=== PATIENT | female | born 1960 | race Caucasian/White ===

== ENCOUNTER 2020-09-15 11:07 | Emergency (ER) | payer BC ==
[~2020-09-15] VITALS: Ht 157.5 cm; Wt 70.3 kg
[2020-09-15 11:07] VITALS: BP 135/74
--- NOTE | 2020-09-15 11:14 | PHYS DOC ---
Past History Past Medical History: Diabetes Adult General Chief Complaint Chief Complaint: ANKLE PROBLEM HPI HPI Patient is a 60yo female presenting via ems for right ankle pain. Onset was just prior to arrival. Patient was walking her dog when another random dog tried fighting her dog. In attempt to pull her dog away and flee, patient reports stepping backwards onto her right foot making and "awkward twisting motion and it just buckled". States she heard a pop and ever since, has had bilateral malleolar pain and difficulty bearing weight. Patient called EMS who splinted foot and gave 100mcg fentanyl. States pain which was initially 10/10 severity is now a 7/10 severity. On ER arriva, she is complaing of right medial malleolus and right posterior fibular head pain. Patient reoprts only significant PMHx well-controlled type 1 DM with insulin pump Review of Systems Review of Systems Fourteen body systems of review of systems have been reviewed. See HPI for pertinent positives and negative responses, other leal all other systems are negative, non-pertinent or non-contributory Physical Exam Physical Exam Constitutional: Well developed, well nourished, no acute distress, non-toxic appearance. HENT: Normocephalic, atraumatic, bilateral external ears normal, oropharynx moist, no oral exudates, nose normal. Eyes: PERRLA, EOMI, conjunctiva normal, no discharge. Neck: Normal range of motion, no tenderness, supple, no stridor. Cardiovascular: Heart rate regular, sinus rhythm, no murmurs rubs or gallops Lungs & Thorax: Bilateral breath sounds clear to auscultation Abdomen: Bowel sounds normal, soft, no tenderness, no masses, no pulsatile masses. Nonsurgical abdomen, no peritoneal signs Skin: Warm, dry, no erythema, no rash. Back: No tenderness, no CVA tenderness. Extremities: No tenderness, no cyanosis, no clubbing, ROM intact, no edema. Neurologic: Alert and oriented X 3, grossly normal motor & sensory function, no focal deficits noted. Psychologic: Affect normal, judgement normal, mood normal. Current Patient Data Vital Signs Vital Signs Date Time Temp Pulse Resp B/P (MAP) Pulse Ox O2 Delivery O2 Flow Rate FiO2 09/15/20 11:07 75 18 135/74 (94) 97 Room Air Vital Signs Date Time Temp Pulse Resp B/P (MAP) Pulse Ox O2 Delivery O2 Flow Rate FiO2 09/15/20 11:07 75 18 135/74 (94) 97 Room Air EKG EKG [] Radiology/Procedures Radiology/Procedures XR KNEE 3 VIEWS_RT 09/15/2020 11:30 AM INDICATION: Fibular head pain COMPARISON: None available. TECHNIQUE: 3 views of the right knee are provided. FINDINGS/ IMPRESSION: No significant elbow joint effusion. There is no acute fracture or dislocation. Joint spaces are maintained. Bone mineralization is within normal limits. Regional soft tissues are within normal limits. There is no soft tissue gas or osseous erosion. No radiopaque foreign body. Electronically signed by: Berkley Ramos MD (09/15/2020 12:12 PM) [facility] [place] ///////////// XR EXAM OF ANKLE_RIGHT 3VIEWS, XR FOOT_RIGHT 3 VIEWS Clinical Indication: Reason: MED MALL PAIN / Spl. Instructions: / History: Comparison: None. Findings: There is acute traumatic fracture of the lateral malleolus. Distal fracture line is at the level of the tibial plafond. The distal fracture fragment is mildly posteriorly displaced and minimally laterally displaced. There is widening of the medial clear space suggesting deltoid ligament injury. There is a tiny bone fragment near the tip of the medial malleolus without definite donor site. A tin y avulsion fracture is possible. There is a mild comminuted fracture of the posterior malleolus. There is soft tissue swelling of the ankle. No dorsal soft tissue swelling of the foot. No acute fracture of the foot. There is old fracture of the distal shaft of the fifth metatarsal. There is possible old fracture of the mid to distal shaft of the first metatarsal. Joint spaces are maintained. IMPRESSION: 1. Acute traumatic fractures of the lateral and posterior malleolus. 2. Tiny bone fragment near the tip of the medial malleolus may be tiny avulsion fracture fragment. 3. Widening of the medial clear space. 4. No acute fracture of the foot. Electronically signed by: Crispin Ngo MD (09/15/2020 12:16 PM) [facility] Heart Score C/O Chest Pain: No Risk Factors: Risk Factors: DM, Current or recent (<one month) smoker, HTN, HLP, family history of CAD, obesity. Risk Scores: Risk Factors: DM, Current or recent (<one month) smoker, HTN, HLP, family history of CAD, obesity. Course & Med Decision Making Course & Med Decision Making VSS, HPI, PE and subsequent radiographs consistent with Rt ankle fracture Discussed need for ortho evaluation, patient requesting to be sent to [facility] system. They were contacted and patient admitted to Dr. Milligan for Ortho reduction, admission overnight, and further evaluation to see if urgent vs outpatient surgical mgmt is required I updated patient and sister at bedside who were amenable to plan as stated. All questions and concerns addressed. Basic splint applied and patient transported via EMS to [facility] location This patient required critical care. Due to the fact that the patient required a significant amount of one on one physician patient contact time, ordering and review of studies, arranging urgent treatment with development of a management plan, evaluation of patients response to treatment with frequent reassessments, and discussions with other providers this patient required critical care time 35mins Critical care time was indicated due to the inherent instability and/or potent ial for instability in this patient. The critical care time that is allocated to this patient is above and beyond any time spent on any other billable procedures performed on this patient. Dragon Disclaimer Dragon Disclaimer This electronic medical record was generated, in whole or in part, using a voice recognition dictation system. Departure Departure: Impression: Primary Impression: Closed right malleolar fracture Disposition: [facility] ([facility] - patient request) Admitting Physician: Other (DR MILLIGAN) Condition: STABLE WILMER VO DO Sep 15, 2020 11:14
--- NOTE | 2020-09-15 12:14 | RAD ---
XR KNEE 3 VIEWS_RT 09/15/2020 11:30 AM INDICATION: Fibular head pain COMPARISON: None available. TECHNIQUE: 3 views of the right knee are provided. FINDINGS/ IMPRESSION: No significant elbow joint effusion. There is no acute fracture or dislocation. Joint spaces are main tained. Bone mineralization is within normal limits. Regional soft tissues are within normal limits. There is no soft tissue gas or osseous erosion. No radiopaque foreign body. Electronically signed by: Berkley Ramos MD (09/15/2020 12:12 PM) [facility]
--- NOTE | 2020-09-15 12:18 | RAD ---
XR EXAM OF ANKLE_RIGHT 3VIEWS, XR FOOT_RIGHT 3 VIEWS Clinical Indication: Reason: MED MALL PAIN / Spl. Instructions: / History: Comparison: None. Findings: There is acute traumatic fracture of the lateral malleolus. Distal fracture line is at the level of t he tibial plafond. The distal fracture fragment is mildly posteriorly displaced and minimally lateral ly displaced. There is widening of the medial clear space suggesting deltoid ligament injury. There i s a tiny bone fragment near the tip of the medial malleolus without definite donor site. A tiny avuls ion fracture is possible. There is a mild comminuted fracture of the posterior malleolus. There is so ft tissue swelling of the ankle. No dorsal soft tissue swelling of the foot. No acute fracture of the foot. There is old fracture of t he distal shaft of the fifth metatarsal. There is possible old fracture of the mid to distal shaft of the first metatarsal. Joint spaces are maintained. IMPRESSION: 1. Acute traumatic fractures of the lateral and posterior malleolus. 2. Tiny bone fragment near the tip of the medial malleolus may be tiny avulsion fracture fragment. 3. Widening of the medial clear space. 4. No acute fracture of the foot. Electronically signed by: Crispin Ngo MD (09/15/2020 12:16 PM) [facility]
== END 2020-09-15 16:00 | disposition short-term general hospital (02) ==
LOC: ER 11:07
DX: S82.891A Other fracture of right lower leg, initial encounter for closed fracture (principal); X50.1XXA Overexertion from prolonged static or awkward postures, initial encounter; Y93.89 Activity, other specified; Y92.89 Other specified places as the place of occurrence of the external cause; Y99.8 Other external cause status
CPT/HCPCS: 73562; 73610; 73630; 96374; 96376; 99285; J3010

== ENCOUNTER 2020-10-07 11:28 | Emergency (ER) | payer BC ==
[~2020-10-07] VITALS: Ht 157.5 cm; Wt 66.8 kg
[2020-10-07 11:28] VITALS: BP 141/79
[2020-10-07] MEDS ORDERED: IV NORMAL SALINE 1,000ML 1,000 ML IV ONE (12:00)
--- NOTE | 2020-10-07 12:01 | RAD ---
XR CHEST 1V History: Reason: CP / Spl. Instructions: / History: Comparison: None. Findings: No consolidation or pleural effusion. Normal heart size. No pneumothorax. Impression: 1. No acute cardiopulmonary process. Electronically signed by: Kyler Palomo DO (10/07/2020 11:59 AM) [id number]
[2020-10-07 12:16] LABS: BASO # 0.1 x10^3/uL (0.0-0.2); BASO % 1 % (0-3); EOS # 0.1 x10^3/uL (0.0-0.7); EOS % 1 % (0-3); HEMATOCRIT 42.9 % (36.0-47.0); HEMOGLOBIN 14.2 g/dL (12.0-15.5); LYMPH # 1.4 x10^3/uL (1.0-4.8); LYMPH % 16 % (24-48); MEAN CORPUSCULAR HEMOGLOBIN 31 pg (25-35); MEAN CORPUSCULAR HGB CONC 33 g/dL (31-37); MEAN CORPUSCULAR VOLUME 93 fL (79-100); MONO # 0.3 x10^3/uL (0.0-1.1); MONO % 4 % (0-9); NEUT # 6.7 x10^3uL (1.8-7.7); NEUT % 78 % (31-73); PLATELET COUNT 458 x10^3/uL (140-400); RED BLOOD COUNT 4.63 x10^6/uL (3.50-5.40); RED CELL DISTRIBUTION WIDTH 13.6 % (11.5-14.5); WHITE BLOOD COUNT 8.6 x10^3/uL (4.0-11.0)
[2020-10-07 12:24] LABS: CALCIUM 9.5 mg/dL (8.5-10.1); CREATININE 1.1 mg/dL (0.6-1.0); GFR 50.8; POTASSIUM 4.8 mmol/L (3.5-5.1)
[2020-10-07 12:29] LABS: ALBUMIN 4.1 g/dL (3.4-5.0); ALBUMIN/GLOBULIN RATIO 1.2 (1.0-1.7); TOTAL BILIRUBIN 0.7 mg/dL (0.2-1.0); TOTAL PROTEIN 7.6 g/dL (6.4-8.2)
--- NOTE | 2020-10-07 12:58 | PHYS DOC ---
Past History Past Medical History: Diabetes Past Surgical History: Appendectomy, Hysterectomy Additional Past Surgical Histo: R FOOT X4 Alcohol Use: None General Adult EDM: Chief Complaint: CHEST PAIN HPI: HPI: 60-year-old female presents with chest pain. The patient woke up this morning and had severe nausea, but no vomiting. Advanced to be an upper chest pain all across her chest. She describes it as a heaviness. This was very concerning to her so she called EMS. At this time the nausea is less pronounced but still there. Her chest pain has improved. Patient is a diabetic with an insulin pump. She states that her blood sugar was 400 last night and she had some kind of a pump error. She believes she has it fixed her blood sugar is still around 350. She is very thirsty. She denies fever or chills. She has no other complaints this time. Review of Systems: Review of Systems: Constitutional: Denies fever or chills Eyes: Denies change in visual acuity HENT: Denies nasal congestion or sore throat Respiratory: Denies cough or shortness of breath Cardiovascular: Chest pain GI: Nausea. Denies abdominal pain, vomiting, bloody stools or diarrhea : Denies dysuria Musculoskeletal: Denies back pain or joint pain Integument: Denies rash Neurologic: Denies headache, focal weakness or sensory changes Endocrine: polydipsia Lymphatic: Denies swollen glands Psychiatric: Denies depression or anxiety Current Medications: Current Meds: Current Medications Medications (Trade) Dose Ordered Sig/Fareed Start Time Stop Time Status Last Admin Dose Admin Sodium Chloride 1,000 ml @ 1,000 mls/hr 1X ONCE 10/07/20 12:00 10/07/20 12:59 10/07/20 12:45 1,000 MLS/HR Allergies: Allergies: Allergies Coded Allergies Type Severity Reaction Last Updated Verified Sulfa (Sulfonamide Antibiotics) Allergy Unknown 09/15/20 Yes Physical Exam: PE: Constitutional: Well developed, well nourished, no acute distress, non-toxic appearance. [] HENT: Normocephalic, atraumatic, bilateral external ears normal, oropharynx moist, no oral exudates, nose normal. [] Eyes: PERRLA, EOMI, conjunctiva normal, no discharge. [] Neck: Normal range of motion, no tenderness, supple, no stridor. [] Cardiovascular: Heart rate 92, regular rhythm, no murmur [] Lungs & Thorax: Bilateral breath sounds clear to auscultation [] Abdomen: Bowel sounds normal, soft, no tenderness, no masses, no pulsatile masses. [] Skin: Warm, dry, no erythema, no rash. [] Back: No tenderness, no CVA tenderness. [] Extremities: No tenderness, no cyanosis, no clubbing, ROM intact, no edema. [] Neurologic: Alert and oriented X 3, normal motor function, normal sensory function, no focal deficits noted. [] Psychologic: Affect normal, judgement normal, mood normal. [] Current Patient Data: Labs: Laboratory Tests Test 10/07/20 11:38 White Blood Count 8.6 x10^3/uL (4.0-11.0) Red Blood Count 4.63 x10^6/uL (3.50-5.40) Hemoglobin 14.2 g/dL (12.0-15.5) Hematocrit 42.9 % (36.0-47.0) Mean Corpuscular Volume 93 fL (79-100) Mean Corpuscular Hemoglobin 31 pg (25-35) Mean Corpuscular Hemoglobin Concent 33 g/dL (31-37) Red Cell Distribution Width 13.6 % (11.5-14.5) Platelet Count 458 x10^3/uL (140-400) H Neutrophils (%) (Auto) 78 % (31-73) H Lymphocytes (%) (Auto) 16 % (24-48) L Monocytes (%) (Auto) 4 % (0-9) Eosinophils (%) (Auto) 1 % (0-3) Basophils (%) (Auto) 1 % (0-3) Neutrophils # (Auto) 6.7 x10^3uL (1.8-7.7) Lymphocytes # (Auto) 1.4 x10^3/uL (1.0-4.8) Monocytes # (Auto) 0.3 x10^3/uL (0.0-1.1) Eosinophils # (Auto) 0.1 x10^3/uL (0.0-0.7) Basophils # (Auto) 0.1 x10^3/uL (0.0-0.2) Sodium Level 136 mmol/L (136-145) Potassium Level 4.8 mmol/L (3.5-5.1) Chloride Level 98 mmol/L (98-107) Carbon Dioxide Level 21 mmol/L (21-32) Anion Gap 17 (6-14) H Blood Urea Nitrogen 18 mg/dL (7-20) Creatinine 1.1 mg/dL (0.6-1.0) H Estimated GFR (Cockcroft-Gault) 50.8 BUN/Creatinine Ratio 16 (6-20) Glucose Level 448 mg/dL (70-99) H Calcium Level 9.5 mg/dL (8.5-10.1) Total Bilirubin 0.7 mg/dL (0.2-1.0) Aspartate Amino Transferase (AST) 14 U/L (15-37) L Alanine Aminotransferase (ALT) 22 U/L (14-59) Alkaline Phosphatase 97 U/L (46-116) Troponin I Quantitative < 0.017 ng/mL (0-0.055) Total Protein 7.6 g/dL (6.4-8.2) Albumin 4.1 g/dL (3.4-5.0) Albumin/Globulin Ratio 1.2 (1.0-1.7) EKG: EKG: Sinus rhythm, rate 92, normal axis, no ST elevation or depression. [] Radiology/Procedures: Radiology/Procedures: [] Impressions: XR CHEST 1V History: Reason: CP / Spl. Instructions: / History: Comparison: None. Findings: No consolidation or pleural effusion. Normal heart size. No pneumothorax. Impression: 1. No acute cardiopulmonary process. Electronically signed by: Kyler Norton DO (10/07/2020 11:59 AM) [id number] DICTATED AND SIGNED BY: KYLER NORTON DO DATE: 10/07/20 1159 CC: DUYEN PLAZA DO; PCP,UNKNOWN ~MTH0 0 Heart Score: C/O Chest Pain: Yes HEART Score for Chest Pain: HEART Score for Chest Pain Response (Comments) Value History Slighlty/Non-Suspicious 0 ECG Normal 0 Age >45 - < 65 1 Risk Factors 1 or 2 Risk Factors 1 Troponin < Normal Limit 0 Total 2 Risk Factors: Risk Factors: DM, Current or recent (<one month) smoker, HTN, HLP, family history of CAD, obesity. Risk Scores: Score 0 - 3: 2.5% MACE over next 6 weeks - Discharge Home Score 4 - 6: 20.3% MACE over next 6 weeks - Admit for Clinical Observation Score 7 - 10: 72.7% MACE over next 6 weeks - Early Invasive Strategies Course & Med Decision Making: Course & Med Decision Making Pertinent Labs and Imaging studies reviewed. (See chart for details) The patient's labs are remarkable for a blood sugar of 450. I have given the patient a liter of normal saline. The rest of her labs are essentially unrem arkable. She is mildly acidotic with an anion gap of 17. I have ordered 10 units of regular insulin IV. Her chest x-ray is unremarkable. Her EKG is unremarkable. Her troponin is negative. I suspect her elevated blood sugar is the cause of her discomfort. Prior to giving the 10 units of insulin, the patient's meter showed a blood sugar of 204. We performed a fingerstick and it was 198. The patient is feeling better and would prefer to go home. I believe this is reasonable despite a mildly elevated anion gap. Her blood sugar seems to be getting better under control. She is stable for discharge at this time. [] Sujatha Disclaimer: Sujatha Disclaimer: This electronic medical record was generated, in whole or in part, using a voice recognition dictation system. Departure Departure: Impression: Primary Impression: Hyperglycemia due to diabetes mellitus Disposition: 01 HOME / SELF CARE / HOMELESS Condition: IMPROVED Referrals: PCP,UNKNOWN (PCP) Patient Instructions: Hyperglycemia, [id number] DUYEN PLAZA DO Oct 07, 2020 12:58
[2020-10-07] MEDS ORDERED: ONDANSETRON PF 4 MG/2 ML VIAL. IVP ONE (13:15)
[2020-10-07] MEDS ORDERED: ONDANSETRON PF 4 MG/2 ML VIAL. ONE (13:24)
[2020-10-07 13:35] LABS: CLARITY,URINE CLEAR; COLOR,URINE YELLOW
[2020-10-07 13:36] LABS: BILIRUBIN,URINE NEG (NEG); GLUCOSE,URINE 500 mg/dL (NEG); NITRITE,URINE NEG (NEG); UROBILINOGEN,URINE 0.2 mg/dL (0.2 mg/dL)
[2020-10-07 13:37] LABS: BACTERIA,URINE FEW /HPF (0-FEW); RBC,URINE 0 /HPF (0-2); SQUAMOUS EPITHELIAL CELL,UR MOD /LPF; WBC,URINE OCC /HPF (0-4)
[2020-10-07] MEDS ORDERED: INSULIN REGULAR 100 UNIT/ML 3ML VIAL. IV ONE (15:30)
--- NOTE | 2020-10-08 06:28 | EKG ---
[address] [address] Test Date: 2020-10-07 Test Time: 11:30:09 Pat Name: NABEEL DURAN Department: Room: Gender: F Bell Clerk: VEGA : 1960 Requested By: DUYEN PLAZA Order Number: [id number] Reading MD: Marek Luo Measurements Intervals [place] Rate: 92 P: 47 TX: 172 QRS: 15 QRSD: 76 T: 36 QT: 350 QTc: 438 Interpretive Statements SINUS RHYTHM NORMAL ECG RI6.02 No previous ECG available for comparison Electronically Signed On 10-09-2020 12:00:19 CDT by Marek Luo
== END 2020-10-07 15:53 | disposition home or self-care (01) ==
LOC: ER 11:28
DX: E11.65 Type 2 diabetes mellitus with hyperglycemia (principal); R07.89 Other chest pain; Z88.2 Allergy status to sulfonamides
CPT/HCPCS: 36415; 71045; 80053; 81001; 82947; 84484; 85025; 93005; 96361; 96374; 99285; J2405; J7030